=== PATIENT | male | born 1980 | race Caucasian/White ===

== ENCOUNTER 2016-05-12 09:45 | Emergency (ER) | payer BC ==
[~2016-05-12] VITALS: Ht 177.8 cm; Wt 95.5 kg
[2016-05-12 10:34] LABS: HEMATOCRIT 42.6 % (38.0-50.0); MCH 29.6 PG (29.0-34.0); MCHC 34.5 G/DL (30.0-36.0); MCV 85.9 FL (86-99); MEAN PLAT.VOLUME 9.5 uM^3 (9.0-12.4); PLATELET COUNT 244 K/uL (156-360); RBC DIS.WIDTH-CV 12.7 % (11.8-14.6); RBC DIS.WIDTH-SD 39.1 % (39-53); RED BLOOD COUNT 4.96 M/uL (4.00-5.50); WHITE BLOOD COUNT 7.3 K/uL (4.1-10.2)
[2016-05-12 10:50] LABS: CHLORIDE 105 mEq/L (99-109); POTASSIUM 4.8 mEq/L (3.7-5.4); SODIUM 141 mEq/L (136-147)
[2016-05-12 10:52] LABS: GLUCOSE 87 mg/dL (70-99)
[2016-05-12 10:53] LABS: ANION GAP 14 MEQ/L (2-14)
[2016-05-12 10:54] LABS: TOTAL BILIRUBIN 0.5 mg/dL (0.0-1.0)
[2016-05-12 10:55] LABS: ALKALINE PHOSPHATASE 80 IU/L (3-129)
[2016-05-12 10:56] LABS: GFR ESTIMATE (CALCULATED) > 59 mL/min/
[2016-05-12 10:57] LABS: UREA NITROGEN (BUN) 17 mg/dL (9-23)
[2016-05-12 11:26] LABS: LIPASE 28 U/L (1.0-51.0)
[2016-05-12 12:16] LABS: ADD MIUA? NO; BILIRUBIN NEGATIVE; BLOOD NEGATIVE; COLOR YELLOW ((YELLOW)); GLUCOSE (STRIP) NEGATIVE; KETONES NEGATIVE; LEUKOCYTES NEGATIVE; NITRITE NEGATIVE; PROTEIN (STRIP) NEGATIVE; SPECIFIC GRAVITY 1.018 (1.000-1.030); UCUL ADDED? NO; UROBILINOGEN 0.2 MG/DL (0.2-1.0)
[2016-05-12] MEDS ORDERED: FLONASE16 G1 BOTH NARES (12:45)
[2016-05-12] MEDS ORDERED: TESSALON PERLE100 MG PO (12:45)
[2016-05-12 13:04] VITALS: BP 126/78
== END 2016-05-12 13:05 | disposition home or self-care (01) ==
LOC: EME 09:45
DX: J06.9 Acute upper respiratory infection, unspecified (principal); R10.30 Lower abdominal pain, unspecified; Z87.891 Personal history of nicotine dependence; F17.200 Nicotine dependence, unspecified, uncomplicated
CPT/HCPCS: 74176; 80053; 81003; 83690; 85027; 87651 90; 99281; 99284